=== PATIENT | female | born 1965 | race Caucasian/White ===

== ENCOUNTER 2023-08-28 10:12 | Observation (INO) ==
--- NOTE | 2023-07-18 13:48 | PAT Medication Instructions ---
Medication Instructions Date of Service July 18, 2023 Home Medications Medication Instructions Recorded epinephrine 0.3 mg/0.3 mL 0.3 mg (0.3 mL) IM Q15M PRN 05/07/21 injection, auto-injector (EpiPen) anaphylaxis 3 doses #4 ea atorvastatin 20 mg tablet 20 mg PO QAM #90 tabs 05/26/22 sertraline 100 mg tablet 200 mg PO QPM #60 tabs 05/04/23 diclofenac sodium 75 mg 75 mg PO BID #60 tabs 06/20/23 tablet,delayed release trazodone 50 mg tablet 50 - 100 mg PO UD PRN insomnia #30 06/27/23 tabs lorazepam 0.5 mg tablet 0.5 mg PO BID PRN acute panic 06/28/23 attack #60 tabs methylphenidate HCl 20 mg tablet 40 mg PO QAM #60 tabs 07/18/23 (Ritalin) Medication List: epinephrine 0.3 mg/0.3 mL injection, auto-injector (EpiPen) 0.3 mg (0.3 mL) IM Q15M PRN anaphylaxis atorvastatin 20 mg tablet 20 mg PO QAM sertraline 100 mg tablet 200 mg PO QPM diclofenac sodium 75 mg tablet,delayed release 75 mg PO BID trazodone 50 mg tablet 50 - 100 mg PO UD PRN insomnia lorazepam 0.5 mg tablet 0.5 mg PO BID PRN acute panic attack methylphenidate HCl 20 mg tablet (Ritalin) 40 mg PO QAM MEDICATION INSTRUCTIONS: Continue as directed epinephrine 0.3 mg/0.3 mL injection, auto-injector (EpiPen) 0.3 mg (0.3 mL) IM Q15M PRN anaphylaxis ASK your surgeon for instructions diclofenac sodium 75 mg tablet,delayed release 75 mg PO BID DO NOT take the morning of surgery methylphenidate HCl 20 mg tablet (Ritalin) 40 mg PO QAM Take morning of surgery With a small sip of water, OTHERWISE NOTHING TO EAT OR DRINK AFTER MIDNIGHT: atorvastatin 20 mg tablet 20 mg PO QAM lorazepam 0.5 mg tablet 0.5 mg PO BID PRN acute panic attack Take evening before surgery sertraline 100 mg tablet 200 mg PO QPM lorazepam 0.5 mg tablet 0.5 mg PO BID PRN acute panic attack trazodone 50 mg tablet 50 - 100 mg PO UD PRN insomnia Other Notes If you have any questions please call us at [phone] or [phone] or [phone] or [phone]
--- NOTE | 2023-07-25 10:48 | Anesthesiology Consultation ---
Date of Service July 25, 2023 Assessment & Plan (1) Encounter for pre-operative examination: - Infectious disease screening: Per assessment on 07/25/23: No known infectious disease contacts. No noted Covid positive test result in past 90 days. Patient had URI symptoms starting greater than 10 days ago including cough, headache, congestion, sore throat, fever (07/14). Symptoms resolved with OTC management/currently feeling well. DOS not until 08/28/23- patient okay to proceed with current DOS without additional preop Covid testing or additional contact precautions as long as no recurrence in symptoms. Patient was advised to contact PAT if symptom recurrence prior to DOS. - Outpatient joint assessment: Pt currently scheduled for inpatient pathway. If surgeon requests review for outpatient joint pathway, patient is an acceptable candidate for outpatient joint program from anesthesia standpoint pending surgeon's office assessment that patient is motivated, has good support and completes Same Day Joint Program preop requirements. Chart Review Chart Review: Acceptable Risk for Surgery and Patient seen in Pre Admission Testing Teaching & Discussion Pre-Anesthesia Teaching/Discussion Notes: Instructed NPO after midnight before surgery,except medications with 15 cc of water. Medication instructions provided according to the PAT guidelines. History Surgery Operation Date: 08/28/23 11:25 Proposed Procedures p Right Anatomic Total Shoulder Arthroplasty versus - Jc Gonzales DO s Right Reverse Total Shoulder Arthroplasty - Jc Gonzales DO Height/Weight Height: 5 ft 5 in Weight: 49.7 kg Allergies Allergy/AdvReac Type Severity Reaction Status Date / Time bee venom protein (honey bee) Allergy Severe Anaphylaxis Verified 07/17/23 07:35 Penicillins Allergy Mild Hives Verified 07/17/23 07:35 amoxicillin Allergy Unknown Hives Verified 07/17/23 07:35 bupropion [From Wellbutrin] AdvReac Intermediate Aggressive, Verified 07/25/23 08:40 angry prednisone AdvReac Unknown Agitated Verified 07/17/23 07:35 Medications Home Medications Medication Instructions Recorded Confirmed Last Taken epinephrine 0.3 mg/0.3 mL 0.3 mg (0.3 mL) IM Q15M PRN 05/07/21 07/17/23 Unknown injection, auto-injector (EpiPen) anaphylaxis 3 doses #4 ea atorvastatin 20 mg tablet 20 mg PO QAM #90 tabs 05/26/22 07/17/23 04/25/23 08:00 diclofenac sodium 75 mg 75 mg PO BID #60 tabs 06/20/23 07/17/23 Unknown tablet,delayed release trazodone 50 mg tablet 50 - 100 mg PO UD PRN insomnia #30 06/27/23 07/17/23 Unknown tabs lorazepam 0.5 mg tablet 0.5 mg PO BID PRN acute panic 06/28/23 07/17/23 Unknown attack #60 tabs methylphenidate HCl 20 mg tablet 40 mg PO QAM #60 tabs 07/18/23 Unknown (Ritalin) sertraline 100 mg tablet 200 mg PO QPM #60 tabs 07/25/23 Unknown Past Medical History Medical History ADHD (attention deficit hyperactivity disorder) Bipolar 1 disorder, manic, moderate Per patient, patient denies Depression with anxiety GERD (gastroesophageal reflux disease) Diet managed Hyperlipidemia Insomnia Osteoarthritis Post traumatic stress disorder Raynauds syndrome No recent issues Exercise / Class Metabolic Activity II 4-5 Yardwork/Stairs/Walk up hill (one FS (no CP, no SOB)) Past Family History Family History Grandfather (Maternal) Myocardial infarction, Onset Age: 43 Grandmother (Maternal) Depression Suicide, Onset Age: 45 Uncle Depression hung self in barn age 50 Aunt Depression, Onset Age: 55 suicide jumped out of high rise Son Depression drug abuse Other No family history of adverse response to anesthesia Denies family history of Ovarian cancer Prostate cancer Breast cancer Colorectal cancer Past Surgical History Surgical History History of breast augmentation R/L History of cataract surgery R/L History of colonoscopy Colonoscopy (04/26/23): MAC at [facility] History of tonsillectomy S/P VALARIE-BSO Past Anesthesia History No Hx of Anesthesia Complications and No Family Hx of Anesthesia Complications History of PONV No Hx of PONV and Hx of Motion Sickness Social History Smoking Status: Current every day smoker tobacco type: cigarettes Smoking cigarettes per day: 10 cigs/day Do You Dip or Chew Tobacco: No Hx Alcohol Use: Yes Alcohol type: hard liquor alcohol intake frequency: a few times a month Hx Substance Use: No substance use type: does not use Review of Systems Patient denies chest pain, shortness of breath, dyspnea on exertion, fever, chills, cough, wheezing, palpitations. Physical Exam Vital Signs VITALS BP 97/65 - per patient, chronic low BP/asymptomatic P 82 TEMP 97.6 SP02 97%RA RESP 16 PHYSICAL Full cervical extension range of motion. Full TMJ range of motion. TMD 3 finger breaths Mallampati Score 1 Dentition: upper sides broken teeth Lungs: clear throughout to auscultation Cardiac: regular rate and rhythm, no murmurs noted Spine: normal Carotid arteries: negative bruit Extremities: no LE edema Lab Results Anesthesia Preop Results Results Anesthesia Widget: WBC 7.09 K/ul (4.8-10.8) 07/25/23 Hgb 12.0 g/dl (12.0-16.0) 07/25/23 Hct 36.5 % (37.0-47.0) L 07/25/23 Plt 289 K/uL (130-400) 07/25/23 Na 138 mmol/L (136-145) 07/25/23 K 4.1 mmol/L (3.5-5.1) 07/25/23 Cl 109 mmol/L (98-107) H 07/25/23 CO2 25 mmol/L (21-32) 07/25/23 BUN 13 mg/dl (6-23) 07/25/23 Creat 0.51 mg/dl (0.6-1.2) L 07/25/23 Glucose Level 104 mg/dl (70-99(Fasting)) H 07/25/23 PT 10.7 Seconds (9.0-12.0) 07/25/23 PTT 25.5 Seconds (21.0-31.0) 07/25/23 INR 1.0 (0.9-1.1) 07/25/23 Blood Type B Positive 07/25/23 Antibody Screen NEGATIVE 07/25/23 Testing Electrocardiogram Date: 07/25/23 NSR at 77bpm. Chest X-Ray Date: 07/25/23 FINDINGS: No lines and tubes are seen. The cardiomediastinal silhouette is normal. The lungs are clear. No evidence of pleural effusion or pneumothorax. IMPRESSION: No acute chest disease.
--- NOTE | 2023-08-24 15:22 | History & Physical Report ---
Date of Service August 24, 2023 Assessment & Plan (1) Avascular necrosis of bone of shoulder: We will proceed with a right total shoulder arthroplasty. Postoperatively she will be placed in a sling and kept overnight for postop medical management. She plans to use energy physical therapy upon discharge. History of Present Illness Chief Complaint: Avascular necrosis of the right shoulder. Primary Care Provider: Maureen Lee MD Suzy is a pleasant 57-year-old female who has been dealing with chronic increasing right shoulder pain. X-rays have shown signs of avascular necrosis. She does have a history of falls on the right shoulder. Her pain has become worse and worse. She has failed extensive conservative treatment. I sent her for an MRI of her shoulder. The MRI showed avascular necrosis of the right shoulder. After failing conservative treatment, she has elected proceed with a right total shoulder arthroplasty. Allergies Allergy/AdvReac Type Severity Reaction Status Date / Time bee venom protein (honey bee) Allergy Severe Anaphylaxis Verified 07/17/23 07:35 Penicillins Allergy Mild Hives Verified 07/17/23 07:35 amoxicillin Allergy Unknown Hives Verified 07/17/23 07:35 bupropion [From Wellbutrin] AdvReac Intermediate Aggressive, Verified 07/25/23 08:40 angry prednisone AdvReac Unknown Agitated Verified 07/17/23 07:35 Home Medications Medication Instructions Recorded Confirmed Type epinephrine 0.3 mg/0.3 mL 0.3 mg (0.3 mL) IM Q15M PRN 05/07/21 07/17/23 Rx injection, auto-injector (EpiPen) anaphylaxis 3 doses #4 ea diclofenac sodium 75 mg 75 mg PO BID #60 tabs 06/20/23 07/17/23 Rx tablet,delayed release sertraline 100 mg tablet 200 mg (2 x 100 mg) PO QPM #60 tabs 07/25/23 Rx diclofenac sodium 75 mg 75 mg PO BID PRN pain #60 tabs 08/04/23 Rx tablet,delayed release methylphenidate HCl 20 mg tablet 40 mg (2 x 20 mg) PO QAM #60 tabs 08/16/23 Rx (Ritalin) atorvastatin 20 mg tablet 20 mg PO QAM #90 tabs 08/22/23 Rx lorazepam 0.5 mg tablet 0.5 mg PO BID PRN acute panic 08/22/23 Rx attack #60 tabs trazodone 50 mg tablet 50 - 100 mg (1 - 2 x 50 mg) PO UD 08/22/23 Rx PRN insomnia #30 tabs Past Med/Surg History Medical History Insomnia Osteoarthritis GERD (gastroesophageal reflux disease) Diet managed Hyperlipidemia Bipolar 1 disorder, manic, moderate Per patient, patient denies Post traumatic stress disorder Raynauds syndrome No recent issues ADHD (attention deficit hyperactivity disorder) Depression with anxiety Surgical History History of colonoscopy Colonoscopy (04/26/23): MAC at [facility] History of cataract surgery R/L History of breast augmentation R/L S/P VALARIE-BSO History of tonsillectomy Family History Grandfather (Maternal) Myocardial infarction, Onset Age: 43 Grandmother (Maternal) Depression Suicide, Onset Age: 45 Uncle Depression hung self in barn age 50 Aunt Depression, Onset Age: 55 suicide jumped out of high rise Son Depression drug abuse Other No family history of adverse response to anesthesia Denies family history of Ovarian cancer Prostate cancer Breast cancer Colorectal cancer Social History Smoking Status: Current every day smoker Tobacco Type: Cigarettes Age Started Using Tobacco: 19; packs per day: 0.5; Cigarettes Per Day: 10 cigs/day; Second Hand Exposure: No; Do You Dip or Chew Tobacco: No; Hx Alcohol Use: Yes Alcohol type: hard liquor Alcohol Intake Frequency: 2-3 x/Week Hx Substance Use: No Preferred Language: Syriac Communication Ability: Effective Hearing Ability: Normal Book Store Associate Required: No Beliefs That Will Affect Care: None marital status: Current Living Situation: Spouse Current Living Situation Comment: Lives with Bhavin her significant other How many Children do You have: 2 Feels Safe at Home: Yes Childhood Exposure to Second-Hand Smoke: Yes Dental Care, Regularly: No Seatbelt Use: always Sunscreen Use: Yes Assistive Devices: Glasses Review of Systems All systems reviewed & are unremarkable except as noted in HPI & below. Physical Exam On physical examination of right shoulder, she only has about 40 degrees forward elevation 40 degrees of abduction. She has good strength. She has a lot of pain with range of motion.. Constitutional WD/WN, vitals as above Eyes PERRL, conjunctivae normal, anicteric sclerae ENMT external ear and nose normal, oropharynx normal Neck trachea midline, no thyromegaly Respiratory normal respiratory effort Cardiovascular RRR, no murmur, no edema Gastrointestinal (Abdomen) normal bowel sounds, soft, nontender, no hepatosplenomegaly Psychiatric A+Ox3, euthymic affect Results & Data Results & Data Laboratory Results . Diagnostic Findings X-rays of the right shoulder show signs of avascular necrosis. MRI of the right shoulder shows avascular necrosis of the superior aspect of the humeral head.. PG Care Time/CCT Total # of Minutes Spent Total Time Spent with Patient: Total time spent is greater than 50% in coordination of care (as documented) at patient's floor/unit and/or counseling patient: Coding Level of Care Code None Diagnoses Avascular necrosis of bone of shoulder M87.019
[~2023-08-28 10:12] MED LIST: ACETAMINOPHEN 500 MG TAB PO SCH; BUPIVACAINE 0.5 % 5 MG/1 ML PF 10ML VIAL ONE; FAMOTIDINE 20 MG TAB PO SCH; GABAPENTIN 600 MG DOSE PO SCH; LR 15ML/HR IV SCH; LR 60ML/HR IV SCH; ORTHO JOINT MIX INFIL SCH; TRANEXAMIC ACID 1,000 MG **IV Intra-op IV SCH; TRANEXAMIC ACID 1,000 MG **IV Pre-op IV SCH; dexAMETHasone 4 MG TAB PO SCH
[2023-08-28] MEDS ORDERED: MIDAZOLAM HCL 1 MG/ML 2ML VIAL ONE ×2 (10:53→12:20)
[2023-08-28] MEDS ORDERED: fentaNYL citrate PF 100 MCG/2 ML VIAL ONE (10:53)
--- NOTE | 2023-08-28 11:45 | History & Physical Bridge Note ---
Date of Service August 28, 2023 History & Physical Bridge Note I have examined the patient, reviewed the History & Physical and in the interval since the performance of the History & Physical I have noted the following changes of clinical significance: no changes noted
[2023-08-28] MEDS ORDERED: ceFAZolin 2000MG 2,000 MG/15 ML SYR IV ONE (11:49)
[2023-08-28] MEDS ORDERED: ceFAZolin 2,000 MG/15 ML IV PUSH IV ONE (11:50)
[2023-08-28] MEDS ORDERED: ORTHO JOINT ANESTHETIC ONE (12:08)
[2023-08-28] MEDS ORDERED: ONDANSETRON INJ 2 MG/ML 2 ML VIAL ONE (13:05)
[2023-08-28] MEDS ORDERED: PROPOFOL IV EMULSION 10 MG/ML 20 ML VIAL IV ONE (13:05)
[2023-08-28] MEDS ORDERED: DEXAMETHASONE SOD INJ 4 MG/ML VIAL ONE (13:34)
[2023-08-28] MEDS ORDERED: PHENYLEPHRINE 100MCG/ML 5ML SYR ONE (13:34)
[2023-08-28] MEDS ORDERED: ePHEDrine sulfate 50 MG/5 ML SYR ONE (13:34)
[2023-08-28] MEDS ORDERED: PHENYLEPHRINE HCL 10 MG/ML VIAL ONE (13:46)
[2023-08-28] MEDS ORDERED: SODIUM CHLORIDE 0.9% PF INJ 10 ML VIAL ONE (13:47)
--- NOTE | 2023-08-28 14:04 | Operative Report ---
PG Post Operative Report Pre & Post Diagnosis Operation Date: 08/28/23 11:55 Pre-Op Diagnosis: Avascular necrosis right shoulder with tendinopathy long head of biceps tendon Post-Op Diagnosis: Avascular necrosis right shoulder with tendinopathy long head of the biceps tendon I identified the patient and participated in the time-out.: Yes Procedure Operation Date: 08/28/23 11:55 Actual Procedures p Right Anatomic Total Shoulder Arthroplasty (Right) - Jc Gonzales DO Surgeon Jc Gonzales DO Legal Analyst Jc Duque PA-C Estimated Blood Loss 100 Findings Consistent with Post-Op Diagnosis Specimens Right humeral head Description of Procedure A CPT code modifier 59: The long head of the biceps tendon was enlarged and inflamed consistent with tendinopathy. A tenodesis was opted. This was a separate and distinct portion of the procedure. For these reasons, a CPT code modifier 59 will be added to this case. Implants used: I used a [employer] Comprehensive total shoulder arthroplasty system with a size 10 press fit micro humeral stem, a size 42 x 18 eccentric humeral head, and a size 2 glenoid with a trabecular metal peg. The glenoid was cemented in place with Palacos G cement. Darya arrived at [facility] for the above procedure. She was seen in the preoperative holding area and the operative extremity was identified and signed. She was given a preoperative antibiotic, TXA, and an interscalene nerve block. She was taken back to the operating room, laid on table in supine position, and put under general anesthesia. She was then put into the beachchair position. The shoulder was then prepped and draped in sterile fashion. A timeout was done and the patient and the operative extremity was properly identified. A deltopectoral approach was used. Dissection was taken down through the fascia and the deltoid was retracted laterally and the conjoined tendon was retracted medially. The anterior shoulder was exposed. The biceps groove was opened up and the biceps tendon was examined extensively. The biceps tendon demonstrated enlargement and inflammatory changes consistent with longstanding inflammation in the context of osteoarthritis. The long head of the biceps tendon was then tenodesed to the upper border of the pectoralis major. This was a separate and distinct portion of the procedure. The subscapularis was then released off the lesser tuberosity with a centimeter of cuff tissue remaining. The inferior capsule was released and the humeral head was dislocated. The rotator cuff was inspected and intact. A canal finding reamer was sent down the center of the humeral canal. Sequential reaming up to a size 10 reamer was done. Offset reamer a proximal humeral resection guide was placed. The proximal humerus was resected at 135 of inclination and 30 of retroversion. Inferior osteophytes were then removed and the glenoid was exposed. Time was spent doing an appropriate labral release. The glenoid measured to be a size 2. A 3.2 mm Steinmann pin was placed in the central hole of the glenoid vault pin guide. The glenoid was then reamed with a propeller reamer. The central post cutter was then used to prepare for the central boss. The cannulated peripheral peg drill guide was then placed and 3 peg holes were drilled. The final size 2 glenoid was then cemented in place with Palacos G cement. Surrounding soft tissues were then injected with 100 cc of an orthopedic pain control cocktail. Once cement had dried the proximal humerus was once again exposed. Sequential broaching of the humerus up to a size 10 broach was done. Off that broach a size 42 x 18 eccentric humeral head was trialed. The shoulder was then reduced, brought through a full range of motion, and felt to be stable. The shoulder was then dislocated and the broach was removed. The final size 10 micro humeral stem implant was then impacted into place. A size 42 x 18 eccentric humeral head was then impacted onto the humeral stem. The shoulder was then reduced and once again brought through a full range of motion and felt to be stable. The subscapularis was then tenodesed back to the lesser tuberosity with transosseous FiberWire sutures and side to side sutures with the arm in 45 of external rotation. 2 sutures were placed in the lateral rotator interval. A dilute betadyne lavage was then done for 3 minutes. The joint was then irrigated with normal saline solution. Hemostasis was obtained. The interval was closed with 2-0 Vicryl suture. The skin was closed with 2-0 Vicryl and evelia. A Silverlon dressing was placed and the arm was rested in a regular arm sling. She was then extubated and transferred to a hospital bed. She was taken to the postanesthesia care unit in stable condition. She tolerated the procedure well. Jc Duque PA-C, was present for the entire procedure. He was critical for patient positioning, prepping, draping, retraction exposure, wound closure and application of sterile dressing. I attest to the content of the Intraoperative Record and any orders documented therein. Any exceptions are noted below.
[2023-08-28] MEDS ORDERED: ePHEDrine sulfate 50 MG/ML AMP IV PRN (14:17)
[2023-08-28] MEDS ORDERED: ONDANSETRON INJ 2 MG/ML 2 ML VIAL IV PRN ×2 (14:17→16:14)
[2023-08-28] MEDS ORDERED: fentaNYL citrate PF 100 MCG/2 ML VIAL IV PRN (14:17)
[2023-08-28] MEDS ORDERED: ATROPINE SULFATE 0.1 MG/ML 10ML SYR IV PRN (14:17)
--- NOTE | 2023-08-28 15:25 | Anesthesiology Progress Note ---
Date of Service August 28, 2023 Anesthesia Post Procedure Vital Signs Vital Signs: Temp Pulse Pulse Resp BP Pulse Ox O2 Del Method 08/28/23 15:15 37 C 79 13 87/60 L 93 Room Air 08/28/23 15:00 36.2 C L 78 12 92/60 L 93 Room Air 08/28/23 14:50 77 12 93/59 L 95 Room Air 08/28/23 14:40 80 17 102/51 L 100 Oxymask 08/28/23 14:30 74 16 90/61 L 100 Oxymask 08/28/23 14:24 36 C L 74 17 92/68 L 100 Oxymask 08/28/23 11:21 37.0 C 84 18 96/61 L 100 Room Air O2 Flow Rate 08/28/23 15:15 08/28/23 15:00 08/28/23 14:50 08/28/23 14:40 9 08/28/23 14:30 9 08/28/23 14:24 9 08/28/23 11:21 Transfer of Care Handoff Completed per policy Notes Mental Status: alert / awake / arousable Patient Amnestic to Procedure: Yes Nausea / Vomiting: adequately controlled Pain: adequately controlled Airway Patency, RR, SpO2: stable & adequate BP & HR: stable & adequate Hydration State: stable & adequate Anesthetic Complications: no major complications apparent
--- NOTE | 2023-08-28 15:52 | XRay Report ---
XR shoulder RT min 2V routine CLINICAL HISTORY: Post shoulder surgery COMPARISON STUDY: Right shoulder 06/09/2023. FINDINGS: Status post right total shoulder arthroplasty. The hardware appears intact. No fracture or dislocation. Skin evelia are in place. IMPRESSION: Status post right total shoulder arthroplasty. No evidence for hardware complication. ACT 112: Negative or not required by law. Electronically signed by: Gera Vann M.D. 08/28/2023 3:51 PM
[2023-08-28] MEDS ORDERED: oxyCODONE HCL IR 5 MG TAB (IMMEDIATE RELEASE) PO PRN (16:14)
[2023-08-28] MEDS ORDERED: HYDROmorphone INJ 0.5 MG/0.5 ML SYR IV PRN (16:14)
[2023-08-28] MEDS ORDERED: bisacodyL 10 MG SUPP PR PRN (16:14)
[2023-08-28] MEDS ORDERED: NALOXONE HCL 0.4 MG/1 ML VIAL/CARP IV PRN (16:14)
[2023-08-28] MEDS ORDERED: traZODone HCL 50 MG TAB PO PRN (16:14)
[2023-08-28] MEDS ORDERED: LORazepam 0.5 MG TAB PO PRN (16:14)
[2023-08-28] MEDS ORDERED: MAGNESIUM HYDROXIDE SUSP 30 ML UDC PO PRN (16:14)
[2023-08-28] MEDS ORDERED: METOCLOPRAMIDE HCL INJ 5 MG/ML 2 ML VIAL IV PRN (16:14)
[2023-08-28] MEDS ORDERED: EPINEPHrine ADULT AUTO-INJECT 0.3 MG SYR IM PRN (16:14)
[2023-08-28] MEDS: SODIUM CHLORIDE 0.9% 1,000 ML IV SCH (16:46)
[2023-08-28] MEDS: ALLERGY Noted to ORDERED Medication SCH ×3 (16:55→17:00)
[2023-08-28] MEDS: KETOROLAC 30 MG/ML VIAL IV SCH (17:53)
[2023-08-28] MEDS: ceFAZolin 2000MG 2,000 MG/15 ML SYR IV SCH (20:26)
[2023-08-28] MEDS ORDERED: SENNA 8.6 MG TAB PO SCH (21:00)
[2023-08-28] MEDS ORDERED: SERTRALINE HCL 100 MG TABLET PO SCH (21:00)
[2023-08-28] MEDS: DOCUSATE SODIUM 100 MG CAP PO SCH (21:42)
[2023-08-28] MEDS: ACETAMINOPHEN 500 MG TAB PO SCH (21:42)
[2023-08-29] MEDS ORDERED: SODIUM CHLORIDE 0.9% 1,000 ML IV ONE (00:31)
[2023-08-29] MEDS: KETOROLAC 30 MG/ML VIAL IV SCH ×3 (00:44→12:01)
[2023-08-29] MEDS: SODIUM CHLORIDE 0.9% 1,000 ML IV SCH (03:06)
[2023-08-29] MEDS: ceFAZolin 2000MG 2,000 MG/15 ML SYR IV SCH (04:17)
[2023-08-29] MEDS: ACETAMINOPHEN 500 MG TAB PO SCH (05:45)
--- NOTE | 2023-08-29 06:56 | Orthopedic Progress Note ---
Date of Service August 29, 2023 Assessment & Plan (1) Status post replacement of right shoulder joint: Overall she is doing fairly well. She is not having much pain in the right shoulder. She will be seen by physical therapy today for ambulation and range of motion exercises. She can be discharged home later today. She will follow- up orthopedics in 2 weeks. Lesa Lackey was seen and examined at bedside this morning. Overall she is doing fairly well. She is not having much pain in the right shoulder. She was able to get some sleep last night. She is no complaints.. Review of Systems All systems reviewed & are unremarkable except as noted in HPI & below. Physical Exam On physical examination of the right shoulder, she is wearing her sling as instructed. The nerve block is still in effect. She has no motion of her hand or wrist.. Results & Data Results & Data Laboratory Results . Diagnostic Findings Postoperative x-rays of the right shoulder show the prosthesis to be in anatomic alignment without any evidence of fracture complication, or loosening.. PG Care Time/CCT Total # of Minutes Spent Total Time Spent with Patient: Total time spent is greater than 50% in coordination of care (as documented) at patient's floor/unit and/or counseling patient: Coding Level of Care Code 39904 Post Operative Follow-Up Diagnoses Status post replacement of right shoulder joint Z96.611
--- NOTE | 2023-08-29 06:57 | Discharge Summary ---
Date of Service August 29, 2023 Admission HPI (Per Admitting) Suzy is a pleasant 57-year-old female who has been dealing with chronic increasing right shoulder pain. X-rays have shown signs of avascular necrosis. She does have a history of falls on the right shoulder. Her pain has become worse and worse. She has failed extensive conservative treatment. I sent her for an MRI of her shoulder. The MRI showed avascular necrosis of the right shoulder. After failing conservative treatment, she has elected proceed with a right total shoulder arthroplasty. Admission Exam (Per Admitting) On physical examination of right shoulder, she only has about 40 degrees forward elevation 40 degrees of abduction. She has good strength. She has a lot of pain with range of motion.. Principal Diagnosis Same as "Discharge Diagnosis" noted below under Discharge Instructions. Discharge Exam On physical examination of the right shoulder, she is wearing her sling as instructed. The nerve block is still in effect. She has no motion of her hand or wrist.. Discharge Data Procedures Performed Operation Date: 08/28/23 11:55 Actual Procedures p Right Anatomic Total Shoulder Arthroplasty (Right) - Jc Gonzales DO Ordered Studies 08/28/23 05:00 US - OR guided needle placemen Routine Hospital Course (1) Status post replacement of right shoulder joint: On August 28, 2023 Darya arrived at [facility] and underwent a right shoulder replacement without complication. She had a general anesthetic and a right interscalene nerve block. Postoperatively, she was placed in a sling and transferred to the general orthopedic floors. Her hospital course was uneventful. On postop day #1, her vital signs were stable and her pain was well controlled. She was able to participate well with physical therapy doing ambulation and range of motion exercises. She was then discharged home. She will follow-up with orthopedics in 2 weeks. PG Care Time/CCT Total # of Minutes Spent Total Time Spent with Patient: Total time spent is greater than 50% in coordination of care (as documented) at patient's floor/unit and/or counseling patient: Discharge Plan Discharge Items Patient Disposition: Home - Home Health Services Reason For Visit: POST OP Discharge Diagnosis: Right shoulder replacement Activity: Per Instructions section Non-emergency contact: Surgeon Call non-emergency contact if: your wound has increased redness and your wound has increased drainage Follow-up/Referrals: Maureen Lee MD [Primary Care Provider] - Diet: Regular Addtl Attending Provider Instructions: Activity and Therapy Recommendations: * If you are using [facility] then therapy will be provided at your home until they feel you have accomplished all of your goals. * If you are using [facility] then Physical Therapy will be provided until they feel you are ready to start Outpatient Physical Therapy. * If you are not using home therapy then Outpatient Physical Therapy should start about 3-5 days from your day of surgery. Therapy will last about 8-12 weeks * Wear your sling for 3 weeks, unless otherwise instructed. You may remove your sling to shower and to dress, but otherwise, you should be in your sling at all times, including while sleeping * The shoulder replacement is very stable and you can use your hand while in the sling * You were shown a series of exercises in the hospital. Do these exercises daily including the exercises you were shown in physical therapy. Medications: * Narcotic You will likely be sent home from the hospital with a prescription for the narcotic pain medication that worked best throughout your stay. * Cefadroxil -take the antibiotic twice a day for 10 days to help prevent infections. * Other medications may be prescribed for specific circumstances. If you have any questions, please call the office at . * Resume previous home medications unless otherwise instructed Dressing Care: Leave the Silverlon dressing in place for 7 days. After 7 days you may remove the dressing. If the incision is not draining then you may leave the evelia open to air. If there is a little bit of drainage or if the evelia are getting stuck on your clothing then cover the incision with a dry dressing. The evelia will be removed at your 2 week follow-up appointment. Showering: You may shower with the Silverlon dressing in place. Do not let the shower spray hit the dressing directly. Pat the Silverlon dressing dry. If the dressing becomes wet underneath, then simply remove the dressing. Keep the incision dry until you are 7 days out from the day of surgery. After 7 days you may remove the Silverlon dressing and shower with the evelia exposed. Let soapy water run over the evelia and pat them dry. Do not scrub or soak the incision. Things To Watch For: * Drainage from the incision site that occurs more than one week after your surgery. * Increased redness at the incision site. * Fever above 102 degrees Fahrenheit. * Unusual chest pain or shortness of breath. * Call [facility] at with any of the above problems Follow-Up Visit: Follow-up with Dr. Gonzales's PA (Jc Duque) 2-3 weeks after your day of surgery. He will remove your evelia and answer any questions. If you have any additional questions or concerns, Dr Gonzales is usually in the office at the same time and will be available An appointment was probably scheduled when you signed-up for surgery in the office. If you have any questions call More detailed instructions as well as Frequently Asked Questions were provided in a folder by our office when you signed-up for surgery. Please review these instructions when you get home. If you have any further questions or concerns, please feel free to call the office at [phone] Pending Studies at Discharge: No Stand-Alone Forms: My [facility] Medications and DC Order Prescriptions: New oxycodone 5 mg Tablet 5 mg PO Q4H PRN (Reason: pain) Qty: 30 0RF cefadroxil 500 mg capsule 500 mg PO BID 10 Days Qty: 20 0RF Continued epinephrine [EpiPen] 0.3 mg/0.3 mL auto-injector 0.3 mg IM Q15M PRN (Reason: anaphylaxis) Qty: 4 0RF Rx Instructions: until response diclofenac sodium 75 mg tablet,delayed release (DR/EC) 75 mg PO BID PRN (Reason: pain) Qty: 60 0RF methylphenidate HCl [Ritalin] 20 mg tablet 40 mg PO QAM Qty: 60 0RF atorvastatin 20 mg tablet 20 mg PO QAM Qty: 90 3RF lorazepam 0.5 mg tablet 0.5 mg PO BID PRN (Reason: acute panic attack) Qty: 60 2RF Rx Instructions: PDMP searched, okay to fill trazodone 50 mg tablet 50 - 100 mg PO UD PRN (Reason: insomnia) Qty: 30 4RF Rx Instructions: 1 to 2 tabs orally at bedtime; PRN; sertraline [Zoloft] 100 mg tablet 200 mg PO QPM Admission Data Admit Date/Time: 08/28/23 14:22 Attending Provider: Jc Gonzales Admit Provider: Jc Gonzales Primary Care Provider: Maureen Lee
[2023-08-29] MEDS: DOCUSATE SODIUM 100 MG CAP PO SCH (08:18)
[2023-08-29] MEDS ORDERED: METHYLPHENIDATE HCL 10 MG TABLET PO SCH (09:00)
[2023-08-29] MEDS ORDERED: MULTIVITAMIN TAB PO SCH (09:00)
[2023-08-29] MEDS ORDERED: ATORVASTATIN 20 MG TAB PO SCH (09:00)
[2023-08-29] MEDS: ALLERGY Noted to ORDERED Medication SCH ×2 (10:32→10:33)
== END 2023-08-29 12:47 | disposition home health service (06) ==
LOC: ASU 10:12 → 3N 10:12